=== PATIENT | female | born 1980 | race Caucasian/White ===

== ENCOUNTER → 2019-08-24 14:05 | Outpatient (BNVA) | payer OTHER, SELFPAY | PROVIDERS: Family Provider Family Medicine; Visit Provider Obstetrics & Gynecology | DX: Z12.4 Encounter for screening for malignant neoplasm of cervix (principal); R10.2 Pelvic and perineal pain | CPT/HCPCS: 88175 ==

== ENCOUNTER → 2019-08-29 15:11 | Outpatient (BNVA) | payer OTHER, SELFPAY | PROVIDERS: Family Provider Family Medicine; Visit Provider Obstetrics & Gynecology | DX: Z12.4 Encounter for screening for malignant neoplasm of cervix (principal); N85.4 Malposition of uterus | CPT/HCPCS: 76830 ==

== ENCOUNTER 2019-09-19 08:56 | Day surgery (SDC) | payer OTHER, SELFPAY ==
[2019-09-18 12:21] LABS: OR HCG Qualitative Urine Negative (Negative)
--- NOTE | 2019-09-18 12:39 | ANES.PREANE2 ---
Pre-Anesthetic Assessment Pre-Anesthetic Assessment: Height/Weight: Height 1.73 m Weight 68.039 kg Preop Diagnosis: Pelvic pain Proposed Procedure: Operation Date: 09/19/19 07:00 Proposed Procedures p Laparoscopy Diagnostic 14066 R10.2(Not Applicable) - Patrice Fontenot MD Familial anesthetic complications: None Social: Social History: No alcohol and No tobacco Exam: Pre-Anes Outpt Exam: alert, oriented x 3, clear to auscultation bilaterally and regular rate & rhythm Airway: Cervical ROM: WNL MP: 2 Additional comments: missing Pulmonary: Pulmonary: None reported CV/HEM: CV/HEM: None reported : : None reported Hepatic: Hepatic: None reported GI: GI: None reported Metabolic: Metabolic: None reported Musc/skel: Musc/skel: None reported Neuropsych: Neuropsych: None reported Anesthetic Plan: ASA status: 1 Anesthesia: General Risk of > 500 ml blood loss (7ml/kg in children): No PFSH Anesthesia PFSH: Social History Smoking and tobacco status: former smoker Quit status (tobacco): has quit using tobacco Year quit tobacco: 2019 Alcohol intake: never Female Reproductive History: Date of last menstrual period: 09/04/19 Data Anesthesia Other Labs: Laboratory Results - last 48 hr 09/18/19 12:15 Urine HCG, Qual Negative Cardiac Studies: No Data to Display
[2019-09-18 12:54] LABS: Add Urine Microscopic? NO
[2019-09-18 13:06] LABS: Basophils % 0.6 %; Eosinophils # 0.1 10^3/uL (0.0-0.8); Eosinophils % 2.2 %; Hematocrit 42.3 % (37.0-47.0); Hemoglobin 13.9 g/dL (11.5-15.3); Lymphocytes # 1.3 10^3/uL (0.8-4.8); Lymphocytes % 24.8 %; Mean Corpuscular HGB Conc 32.9 g/dL (30.0-36.0); Mean Corpuscular Hemoglobin 30.3 pg (28.0-34.0); Mean Corpuscular Volume 92.4 fL (81-99); Mean Platelet Volume 10.7 fL (7.4-10.4); Monocytes # 0.7 10^3/uL (0.2-0.9); Monocytes % 14.1 %; Neutrophils # 2.9 10^3/uL (1.8-7.7); Neutrophils % 58.1 %; Nucleated Red Blood Cells % 0 %; Platelet Count 198 10^3/cmm (130-400); Red Blood Count 4.58 10^6/uL (4.1-5.3); Red Cell Distribution Width 11.4 % (12.1-15.1); White Blood Count 5.1 10^3/uL (4.0-10.0)
[2019-09-18 13:12] LABS: Anion Gap 13.3 (5-19); Blood Urea Nitrogen 12 mg/dL (6-20); Calcium 9.5 mg/dL (8.5-10.5); Carbon Dioxide 30 mmol/L (22-29); Chloride 101 mmol/L (98-107); Glomerular Filtration Rate 80.3 mL/min (90-130); Glucose 73 mg/dL (65-115); Osmolality Calculated 285 mOsm/kg (285-295); Potassium 4.3 mmol/L (3.5-5.1); Sodium 140 mmol/L (136-145)
[2019-09-18 13:54] LABS: Bilirubin Urine Neg (NEGATIVE); Blood Urine Neg (Negative); Glucose Urine UA Norm (Normal); Ketones Urine Negative (Negative); Leukocyte Esterase Urine Negative (Negative); Nitrate Urine Negative (Negative); Protein Urine Neg (Negative); Urine Appearance Clear (CLEAR); Urine Color Yellow (Yellow); Urobilinogen Urine Norm (Negative); pH Urine 6.5 (5-7)
[2019-09-19] VITALS (9 sets, daily range): BP systolic 103–117; BP diastolic 73–82; PULSE 52–77; RESP 12–26; TEMP 36.4–36.7; O2SAT 97–100; BMI 22.8
[2019-09-19] MEDS: sodium chloride 0.9% 1,000 ML 30 ML IV (06:18)
[2019-09-19] MEDS: scopolamine 1.5 Patch 1 PATCH TRANSDERMA (06:19)
[2019-09-19] MEDS: ketorolac 30 mg/mL INJ IVP (06:32)
--- NOTE | 2019-09-19 06:51 | P.ANESUD_ITS ---
Pre-Anesthetic Update Pre-Anesthetic Assessment: Date of Surgery/Procedure: 09/19/19 Preop Addie gnosis: Pelvic pain Proposed Procedure: Operation Date: 09/19/19 07:00 Proposed Procedures p Laparoscopy Diagnostic 40650 R10.2(Not Applicable) - Patrice Fontenot MD Any changes to Pre-Anesthetic Assessment?: No Last Intake: Intake Last Liquid Date 09/18/19 Last Liquid Time 23:45 Last Solid Date 09/18/19 Last Solid Time 14:00 Labs Last 48hrs: Laboratory Results - last 48 hr 09/18/19 09/18/19 09/18/19 12:15 12:15 12:15 WBC 5.1 RBC 4.58 Hgb 13.9 Hct 42.3 MCV 92.4 MCH 30.3 MCHC 32.9 RDW 11.4 L Plt Count 198 MPV 10.7 H Neut % (Auto) 58.1 Lymph % (Auto) 24.8 [place] % (Auto) 14.1 Eos % (Auto) 2.2 Baso % (Auto) 0.6 Neut # (Auto) 2.9 Lymph # (Auto) 1.3 [place] # (Auto) 0.7 Eos # (Auto) 0.1 Baso # (Auto) 0.0 Nucleated RBC % (a uto) 0 Nucleated RBCs # 0.0 Sodium 140 Potassium 4.3 Chloride 101 Carbon Dioxide 30 H Anion Gap 13.3 BUN 12 Creatinine 0.8 GFR Calculation 80.3 L Glucose 73 Calculated Osmolal ity 285 Calcium 9.5 Urine Color Urine Appearance Urine pH Ur Specific Gravit y Urine Protein Urine Glucose (UA) Urine Ketones Urine Blood Urine Nitrate Urine Bilirubin Urine Urobilinogen Ur Leukocyte Atiya ase Urine HCG, Qual Negative 09/18/19 12:15 WBC RBC Hgb Hct MCV MCH MCHC RDW Plt Count MPV Neut % (Auto) Lymph % (Auto) [place] % (Auto) Eos % (Auto) Baso % (Auto) Neut # (Auto) Lymph # (Auto) [place] # (Auto) Eos # (Auto) Baso # (Auto) Nucleated RBC % (a uto) Nucleated RBCs # Sodium Potassium Chloride Carbon Dioxide Anion Gap BUN Creatinine GFR Calculation Glucose Calculated Osmolal ity Calcium Urine Color Yellow Urine Appearance Clear Urine pH 6.5 Ur Specific Gravit y 1.010 Urine Protein Neg Urine Glucose (UA) Norm Urine Ketones Negative Urine Blood Neg Urine Nitrate Negative Urine Bilirubin Neg Urine Urobilinogen Norm Ur Leukocyte Atiya ase Negative Urine HCG, Qual Vitals: Temperature 97.5 F L 09/19/19 06:46 Temperature Source Temporal Artery S can 09/19/19 06:46 Pulse Rate 69 09/19/19 06:46 Respiratory Rate 18 09/19/19 06:46 Blood Pressure 116/80 09/19/19 06:46 Blood Pressure Char n 92 09/19/19 06:46 Pulse Oximetry 97 09/19/19 06:46 Oxygen Delivery Me thod 09/19/19 06:48 Exam: Pre-Anes Outpt Exam: alert, oriented x 3, clear to auscultation bilaterally and regular rate & rhythm Cardiac Studies: No Data to Display
--- NOTE | 2019-09-19 07:09 | W.PM.OPSUD ---
Surgery/Procedure H&P Update DATE OF PROCEDURE: September 19, 2019 DATE H&P PERFORMED: 09/11/19 H&P UPDATE INFORMATION: I have reviewed H&P completed within last 30 days and I have examined patient prior to procedure PREOP DIAGNOSIS: Pelvic pain PLANNED PROCEDURE: Operation Date: 09/19/19 07:00 Proposed Procedures p Laparoscopy Diagnostic 31338 R10.2(Not Applicable) - Patrice Fontenot MD
--- NOTE | 2019-09-19 08:08 | P.OP_ITS ---
Operative Report Date of procedure: September 19, 2019 Pre-op Diagnosis: Pelvic pain Post-op diagnosis: same Post-op Findings: Bilateral hydrosalpinx, clubbed fallopian tubes, left side cul-de-sac peritoneal defects (windows). Procedure Done: diagnostic laparoscopy Pathology: none sent Surgeon: Patrice Fontenot Anesthesia: General Estimated blood loss (mL): 5 IV fluids (mL): 500 Urine output (mL): 50 Complications: 9 Findings: same as postop findings Condition: stable Disposition: PACU Brief History: 39-year-old female with chronic pelvic pain Procedure: DESCRIPTION OF PROCEDURE: After informed consent, the patient was taken to the operating room where general anesthesia was administered. The patient was examined under anesthesia and found to have a normal uterus with normal adnexa. She was placed in the dorsal lithotomy position and prepped and draped in sterile fashion. Pre- Procedure Time-Out verifying the correct patient identity, correct procedure verified with consent, correct site and side, correct patient position, availability of correct implants and any special equipment or requirements was performed and acknowledge by the OR team. A weighted speculum was placed in the vagina, and the anterior lip of cervix was grasped with the single toothed tenaculum. A uterine manipulator was advanced into the endocervical. Tenaculum was removed after uterine manipulator was secured. The speculum was removed from the vagina. An intraumbilical incision was made with a scalpel. While tenting up on the abdomen, a Verres needle with sleeve was admitted into the intra-abdominal cavity. A saline drop test was performed and noted to be within normal limits. Pneumoperitoneum was attained with 4 liters of carbon dioxide. The Verres needle was removed. A 5 mm trocar and sleeve were admitted into the abdomen and laparoscopic confirmation of location was achieved, A second incision was made 3 cm above the symphysis pubis, and a 5 mm trocar and sleeve were admitted into the abdomen under direct, laparoscopic visualization without complication. A survey revealed normal abdominal anatomy and pelvic survey shows normal uterus, left and right ovaries. However left and right fallopian tubes are clubbed and dilated subjective of hydrosalpinx. A 5 mm blunt probe was advanced through the second trocar sleeve, and light manipulation of ovaries and uterus to assess the posterior aspects was performed. Peritoneal defects (windows) were noted in the cul-de-sac left side. Carbon dioxide was allowed to escape from the abdomen. The instruments were removed, and skin cover with a bandage. The instruments were removed from the vagina, and excellent hemostasis was noted. The patient tolerated the procedure well, and sponge, lap and needle count were correct times two. The patient taken to the recovery room in good condition.
--- NOTE | 2019-09-19 08:12 | SUR.PHASEI ---
0811 PATIENT TO PACU AT THIS TIME. RR EVEN AND UNLABORED. PATIENT NOTED TO BE SLEEPING, PROTECTING AIRWAY. 2 INCISIONS NOTED TO ABDOMEN, CLOSED WITH DERMABOND. CDI.
[2019-09-19] MEDS: ondansetron 2 mg/ML SDV 2 mL 4 MG IVP (08:24)
--- NOTE | 2019-09-19 08:40 | SUR.PHASEI ---
0837 PATIENT TO OPS AT THIS TIME. NO DISTRESS. RR EVEN AND UNLABORED. INCISIONS TO ABDOMEN, CDI.
--- NOTE | 2019-09-19 09:40 | PM.PACU ---
PACU note Post-Anesthesia Exam: awake and vital signs stable Disposition: discharged
== END 2019-09-19 09:36 | disposition home or self-care (01) ==
LOC: OR 08:56
PROVIDERS: Visit Provider Obstetrics & Gynecology
PROC: (CPT 49320; principal; 2019-09-19 07:00)
DX: N70.11 Chronic salpingitis (principal); N83.8 Other noninflammatory disorders of ovary, fallopian tube and broad ligament; Z87.891 Personal history of nicotine dependence; Z83.3 Family history of diabetes mellitus; Z82.49 Family history of ischemic heart disease and other diseases of the circulatory system
CPT/HCPCS: 49320; 12345; 36415; 80048; 81003; 81025; 84703; 85025; 96374; J1100; J1885; J2001; J2250; J2405; J2704; J2710; J3010; J3490; J7030

== ENCOUNTER 2019-11-14 10:16 | Observation (INO) | payer OTHER, SELFPAY ==
[2019-11-13 10:28] VITALS: BMI 22.8
[2019-11-14] VITALS (19 sets, daily range): BP systolic 101–141; BP diastolic 61–94; PULSE 61–95; RESP 15–31; TEMP 36.2–36.7; O2SAT 97–100
[2019-11-14] MEDS: sodium chloride 0.9% 1,000 ML 30 ML IV ×2 (06:54→10:56)
--- NOTE | 2019-11-14 06:56 | ANES.PREANE2 ---
Pre-Anesthetic Assessment Pre-Anesthetic Assessment: Height/Weight: Height 1.73 m Weight 68.039 kg Temp Pulse Resp BP Pulse Ox 97.1 F L 71 16 117/82 98 11/14/19 06:36 11/14/19 06:36 11/14/19 06:36 11/14/19 06:36 11/14/19 06:36 Preop Diagnosis: Chronic pelvic pain, endometriosis Proposed Procedure: Operation Date: 11/14/19 07:50 Proposed Procedures p Laparoscopic Assist Vaginal Hystectomy 15059 N70.11 R10.2 N80.9(Not Applicable) - Patrice Fontenot MD Familial anesthetic complications: None Was Beta Carmencita taken within 24 hours: N/A Last intake: Intake Last Liquid Date 11/13/19 Last Liquid Time 19:00 Last Solid Date 11/13/19 Last Solid Time 19:00 Social: Social History: No alcohol and No tobacco Exam: Pre-Anes Outpt Exam: alert, oriented x 3, clear to auscultation bilaterally and regular rate & rhythm Airway: Cervical ROM: WNL MP: 2 Additional comments: missing Pulmonary: Pulmonary: None reported CV/HEM: CV/HEM: None reported : : None reported Hepatic: Hepatic: None reported GI: GI: None reported Metabolic: Metabolic: None reported Musc/skel: Musc/skel: None reported Neuropsych: Neuropsych: None reported Anesthetic Plan: ASA status: 1 Anesthesia: General Risk of > 500 ml blood loss (7ml/kg in children): No Meds/Allergies Current Medications: Current Medications Generic Name Dose Route Start Last Admin Trade Name Freq PRN Reason Stop Dose Admin Sodium Chloride 1,000 mls @ 30 ml s/hr 11/14/19 06:30 11/14/19 06:54 Sodium Chloride 0.9% IV 11/15/19 06:29 30 mls/hr .Q24H MARY Administration PFSH Anesthesia PFSH: Social History (Updated 11/12/19 @ 09:05 by Vira Garcia RN) Smoking and tobacco status: former smoker Quit status (tobacco): has quit using tobacco Year quit tobacco: 2019 Alcohol intake: never Female Reproductive History: Date of last menstrual period: 09/04/19 Data Anesthesia Cardiac Studies: No Data to Display
--- NOTE | 2019-11-14 07:07 | W.PM.OPSUD ---
Surgery/Procedure H&P Update DATE OF PROCEDURE: November 14, 2019 DATE H&P PERFORMED: 11/12/19 H&P UPDATE INFORMATION: I have reviewed H&P completed within last 30 days and I have examined patient prior to procedure PREOP DIAGNOSIS: Chronic pelvic pain, endometriosis PLANNED PROCEDURE: Operation Date: 11/14/19 07:50 Proposed Procedures p Laparoscopic Assist Vaginal Hystectomy 93782 N70.11 R10.2 N80.9(Not Applicable) - Patrice Fontenot MD
[2019-11-14 07:19] LABS: Basophils % 0.6 %; Eosinophils # 0.2 10^3/uL (0.0-0.8); Eosinophils % 2.7 %; Hematocrit 40.8 % (37.0-47.0); Hemoglobin 13.3 g/dL (11.5-15.3); Lymphocytes # 1.8 10^3/uL (0.8-4.8); Lymphocytes % 25.5 %; Mean Corpuscular HGB Conc 32.6 g/dL (30.0-36.0); Mean Corpuscular Hemoglobin 30.6 pg (28.0-34.0); Mean Platelet Volume 10.7 fL (7.4-10.4); Monocytes # 0.6 10^3/uL (0.2-0.9); Monocytes % 8.1 %; Neutrophils # 4.4 10^3/uL (1.8-7.7); Neutrophils % 62.7 %; Nucleated Red Blood Cells % 0 %; Platelet Count 206 10^3/cmm (130-400); Red Blood Count 4.34 10^6/uL (4.1-5.3); Red Cell Distribution Width 11.7 % (12.1-15.1); White Blood Count 7.1 10^3/uL (4.0-10.0)
[2019-11-14 07:22] LABS: OR HCG Qualitative Urine Negative (Negative)
--- NOTE | 2019-11-14 08:59 | SUR.OPER ---
0850 - Pt's family, [place], notified of surgery start via his cell phone.
[2019-11-14 09:06] LABS: Alanine Aminotransferase 12 U/L (0-33); Albumin Level 4.5 g/dL (3.5-5.2); Alkaline Phosphatase 50 IU/L (35-105); Anion Gap 14.1 (5-19); Aspartate Amino Transferase 15 U/L (0-32); Blood Urea Nitrogen 19 mg/dL (6-20); Calcium 9.1 mg/dL (8.5-10.5); Carbon Dioxide 28 mmol/L (22-29); Chloride 99 mmol/L (98-107); Globulin 2.8 g/dL (1.3-4.6); Glomerular Filtration Rate 80.3 mL/min (90-130); Glucose 86 mg/dL (65-115); Osmolality Calculated 280 mOsm/kg (285-295); Potassium 4.1 mmol/L (3.5-5.1); Sodium 137 mmol/L (136-145); Total Bilirubin 0.4 mg/dL (0.15-1.2); Total Protein 7.3 g/dL (6.6-8.7)
--- NOTE | 2019-11-14 10:13 | P.OP_ITS ---
Operative Report Date of procedure: November 14, 2019 Pre-op Diagnosis: Chronic pelvic pain, endometriosis Post-op diagnosis: same Procedure Done: Laparoscopic assisted vaginal hysterectomy Specimens removed/disposition: Uterus and left and right fallopian tubes Anesthesia: General Estimated blood loss (mL): 100 Urine output (mL): 100 Complications: None Condition: stable Disposition: PACU Brief History: 39-year-old female with chronic pelvic pain and endometriosis Procedure: After informed consent, the patient was taken to the operating room where general anesthesia was administered. Pre-Procedure Time-Out verifying the correct patient identity, correct procedure verified with consent, correct site and side, correct patient position, availability of correct implants and any special equipment or requirements was performed and acknowledge by the OR team. She was placed in the dorsal lithotomy position and prepped and draped in sterile fashion. The patient was examined under anesthesia and found to have a normal uterus with normal adnexa. A Yi catheter was placed in the bladder. A weighted speculum was placed in the vagina, and the anterior lip of cervix was grasped with the single toothed tenaculum. A uterine manipulator was advanced into the endocervical. Tenaculum was removed after uterine manipulator was secured. The speculum was removed from the vagina. The attention was brought to abdomen after changing gloves. The base of the umbilicus was grasped with an Allis clamp and with 2 towel clamp bilaterally tenting up the umbilicus an intraumbilical incision was made with a scalpel. While tenting up on the abdomen, a Verres needle with sleeve was admitted into the intra-abdominal cavity. A saline drop test was performed and noted to be within normal limits. Pneumoperitoneum was attained with 4 liters of carbon dioxide. The Verres needle was removed. Then a 5 mm Optiview trocar and cannula were inserted under direct visualization without complications. Trocars were removed and the laparoscope was inserted and connected to the video camera light source. A 5 mm trocar and cannula were placed in the right lower quadrant under direct visualization after infiltration of 0.5% Marcaine with epinephrine. A 5 mm trocar and cannula were placed in the left lower quadrant under direct visualization after infiltration of 0.5% Marcaine with epinephrine. The pelvic contents were visualized and noted a small uterus, deep cul-de-sac, normal bilateral fallopian tubes and ovaries, normal appendix, and both ureters were identified crossing the pelvic brim and pelvic sidewall. The left round ligament was coagulated and transected using Enseal device. The left broad ligament was opened down to the level of the uterine artery and vein. The left infundibulopelvic ligament was coagulated using Enseal and then transected. The right round ligament was coagulated and transected using Enseal, and the right broad ligament was opened down to the level of the right uterine artery and vein. The right infundibulopelvic ligament was coagulated and transected using Enseal. Peritoneum of the lower ut erine segment was entered using Enseal, and the bladder was dissected off the lower uterine segment using blunt dissection. Careful inspection revealed complete hemostasis. A weighted speculum was placed in the posterior vaginal wall and the right-angle retractor used to visualize the cervix. The cervix was grasped across the anterior lip with a single-toothed tenaculum and circumferentially infiltrated with 1% Xylocaine with epinephrine at this time. The cervix was circumferentially excised with the scalpel. The vaginal mucosa was dissected superiorly with sharp dissection. The anterior peritoneal reflection was identified, and it was entered with Metzenbaum scissors. A posterior colpotomy was made through the cul-de-sac space. The posterior peritoneum was identified in similar fashion and Metzenbaum scissors were used to enter the cul-de-sac. At this time, a weighted speculum was placed, advanced posteriorly into the cul-de-sac. At this time, the left and right uterosacral ligaments were isolated and ligated with 0 Vicryl. The Enseal device was then used in a serial fashion up through the cardinal ligaments bilaterally. Finally, the uterine arteries were cross-clamped, cut, and ligated with the Enseal device. Enseal device was then used up through the broad ligaments superiorly and finally the uterus was rotated posteriorly. The left and right tubes were then cross- clamped and ligated with Enseal device. The uterus was excised and submitted for pathologic evaluation. No other abnormalities were noted in the pelvic cavity. At this time, instruments were removed from the patient's abdominopelvic cavity. Vaginal cuff closure and peritoneum were incorporated into one layer with 0 Vicryl suture in a continuous running interlocking fashion. Hemostasis was not ed to be achieved. Then the Yi catheter was removed and cystoscope was inserted. The bladder was filled with sterile water. Complete evaluation of the bladder mucosa was performed noting no lacerations, dimpling, tears, bleeding of the mucosa or muscular layers. Both ureteral orifices were identified. Prompt excretion of urine from both ureteral orifices was noted. Cystoscope was withdrawn. Yi catheter was then placed yielding clear lashonda urine. A vaginal packing with Premarin cream was placed and the patient was taken out of dorsal lithotomy position and awakened from the general anesthesia. The patient tolerated the procedure well and was taken to the PACU recovery room in a stable condition. Sponge, lap, needle and instruments counts were correct x3.
--- NOTE | 2019-11-14 10:31 | SUR.PHASEI ---
PT AWAKES TO TOUCH , ABD SOFT 3 SITES WITH EXOFING FAIZA PAD D/I BURTON TO DD BLUE URINE NOTED., PT KEEPS TAKING MASK OFF
[2019-11-14] MEDS: fentaNYL 50 mcg/mL INJ 2mL IVP ×2 (10:34→10:40)
[2019-11-14] MEDS: meperidine 50 mg/mL INJ 12.5 MG IVP (10:45)
--- NOTE | 2019-11-14 11:00 | SUR.PHASEI ---
PT NOW SLEEPS IF NOT DISTURBED STATES LT SHOULDER PAIN IS GONE WITH PAIN MEDS AND REPOSITION, SEE EARLIER PAIN MEDS AND MED GIVEN FOR PT SHIVERING , PT GIVEN WARM BLANKETS TO BILAT SHOULDERS AND ABD EARLIER, VSS SATS 100% ON RA. HR 72 SR, URINE IN SMALL AMT NOTED TO BURTON BAG BLUE IN COLOR.
--- NOTE | 2019-11-14 11:37 | SUR.PHASEI ---
PT TO FLOOR PT MOVES SELF TO BED, BP 114/73, HR 76, RESP 15, SATS ON RA 100%
[2019-11-14] MEDS: ondansetron 2 mg/ML SDV 2 mL 4 MG IVP (11:54)
[2019-11-14] MEDS: HYDROcodone-acetaminophen 5-325 mg Tablet PO ×2 (11:54→18:12)
[2019-11-14] MEDS: ketorolac 30 mg/mL INJ IVP ×3 (11:55→23:58)
[2019-11-14] MEDS: fentaNYL 50 mcg/mL INJ 2mL IV (15:43)
[2019-11-14] MEDS: docusate sodium 100 mg Capsule PO (18:13)
[2019-11-14] MEDS: simethicone 80 mg Chew PO (18:21)
[2019-11-14] MEDS: dextrose 5%-lactated ringers 1,000 ML 125 ML IV (18:21)
[2019-11-15 04:00] VITALS: BP 107/65; PULSE 63; RESP 16; TEMP 36.7; O2SAT 98
[2019-11-15] MEDS: HYDROcodone-acetaminophen 5-325 mg Tablet PO (04:52)
[2019-11-15 04:59] LABS: Hematocrit 35.4 % (37.0-47.0); Hemoglobin 11.6 g/dL (11.5-15.3); Mean Corpuscular HGB Conc 32.8 g/dL (30.0-36.0); Mean Corpuscular Volume 94.7 fL (81-99); Mean Platelet Volume 10.8 fL (7.4-10.4); Platelet Count 174 10^3/cmm (130-400); Red Blood Count 3.74 10^6/uL (4.1-5.3); Red Cell Distribution Width 11.9 % (12.1-15.1); White Blood Count 10.3 10^3/uL (4.0-10.0)
[2019-11-15] MEDS: ketorolac 30 mg/mL INJ IVP (06:17)
[2019-11-15] MEDS: nitrofurantoin SR (BID) 100 mg Capsule PO (08:33)
[2019-11-15] MEDS: docusate sodium 100 mg Capsule PO (08:33)
[2019-11-15 10:42] VITALS: BP 109/72; PULSE 69; RESP 16; TEMP 36.9
--- NOTE | 2019-11-15 12:22 | P.DS_ITS ---
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 Date of Admission: 11/14/19 10:16 Date of Discharge: 11/15/19 Attending Provider at Admission: Patrice Fontenot MD Attending Provider at Discharge: Patrice Fontenot MD Primary Care Provider: David Stallworth MD Diagnoses at Discharge Discharge Diagnosis (1) Chronic pelvic pain in female: Status: Acute Problem details: Status post laparoscopic-assisted vaginal hysterectomy day 1 (2) Endometriosis: Status: Acute (3) Hydrosalpinx: Status: Acute Reason for Visit Reason for Visit: Reason For Visit: Chronic salpingitis, pelvic and perineal pain, end Brief History: 39-year-old female with chronic pelvic pain and endometriosis unresponsive to medical management, scheduled for laparoscopic- assisted vaginal hysterectomy. Hospital Course Hospital Course: The patient admitted for planned laparoscopic assisted vaginal hysterectomy. The procedure was performed without complications. Overnight observation uneventful. She is afebrile hemodynamically stable. Tolerating diet well. Passing flatus. Ambulating without difficulty. Physical Exam Narrative: EXAM NARRATIVE: GA: Alert and oriented ?3. HEENT: WNL. Heart: Regular rate and rhythm. Lungs: Clear to auscultation bilaterally. Abdomen: Bowel sounds present, nontender, minimal tenderness, incision clean and dry, no redness, pain or edema. DESK CLERKS SUPERVISOR: No bleeding. Extremities: No edema, no cyanosis, no calves pain. Urinary Catheter Management^: Yi: Cath Placed During This Visit: yes Urinary Catheter Date of Insertion: 11/14/19 Urinary Catheter Time of Insertion: 08:40 Discharge Data Data Completed and Pending: Completed Studies During Hospitalization Category Date Time Status Pathology: Surgic al [PTH] Routine Pth 11/14/19 09:56 Completed Pending at discharge Category Date Time Status ES surgery / GI i mages Routine Exams 11/14/19 08:10 Taken Labs from last 24 hours 11/15/19 04:45 WBC 10.3 H RBC 3.74 L Hgb 11.6 Hct 35.4 L MCV 94.7 MCH 31.0 MCHC 32.8 RDW 11.9 L Plt Count 174 MPV 10.8 H Laboratory Tests 11/14/19 06:47 WBC 7.1 Hgb 13.3 Hct 40.8 Plt Count 206 Vitals: Last Vital Signs Temp 98.5 F 11/15/19 10:42 Pulse 69 11/15/19 10:42 Resp 16 11/15/19 10:42 BP 109/72 11/15/19 10:42 Pulse Ox 98 11/15/19 04:00 Discharge Plan Discharge Patient Disposition: Home, Self-Care Condition: Stable Prescriptions: New hydrocodone-acetaminophen 5-325 mg Tablet 1 - 2 tab PO Q6H PRN (Reason: Moderate To Severe Pain) Qty: 30 RF: 0 ibuprofen 800 mg tablet 800 mg PO TID PRN (Reason: Postoperative pain) Qty: 90 RF: 0 docusate sodium 100 mg Capsule 100 mg PO BID Qty: 60 RF: 0 Continued nitrofurantoin macrocrystal 100 mg capsule 100 mg PO DAILY RF: 0 Discharge Orders: Discharge Order (Routine); Ordered 11/15/19 Ordered By: Patrice Fontenot Discharge Diet: Regular Discharge Activity: Increase activity as tolerated Activity Restrictions/Additional Instructions: Pelvic rest for 6 weeks (no sex, no tampons, no vaginal douches). Return to the emergency room if any fever, increased bleeding or pain. 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
[2019-11-15 13:16] VITALS: BP 125/79; PULSE 73; RESP 18; TEMP 36.7
== END 2019-11-15 13:30 | disposition home or self-care (01) ==
LOC: OBGYN 10:16
PROVIDERS: Admitting Provider Obstetrics & Gynecology; PCP Family Medicine; Visit Provider Obstetrics & Gynecology
PROC: 0UT9FZZ Resection of Uterus, Via Natural or Artificial Opening With Percutaneous Endoscopic Assistance (ICD-10-PCS; CPT 58552; principal; 2019-11-14 07:50)
DX: N80.9 Endometriosis, unspecified (principal); G89.29 Other chronic pain; N70.11 Chronic salpingitis
CPT/HCPCS: 58552; 12345; 36415; 80053; 84703; 85025; 85027; 86850; 86900; 88307; 96361; 96365; 96375; G0378; J0131; J0694; J1100; J1885; J2001; J2175; J2405; J2704; J3010; J3490; J7030

== ENCOUNTER → 2019-11-27 13:49 | Outpatient (BNVA) | payer OTHER, SELFPAY | PROVIDERS: PCP Family Medicine; Visit Provider Obstetrics & Gynecology | DX: G89.18 Other acute postprocedural pain (principal) | CPT/HCPCS: 76856 ==

== ENCOUNTER → 2020-06-16 12:12 | Outpatient (BNVA) | payer OTHER, SELFPAY | PROVIDERS: PCP Family Medicine; Visit Provider Family Medicine | DX: N39.0 Urinary tract infection, site not specified (principal) | CPT/HCPCS: 81003; 87077; 87086; 87184 ==

== ENCOUNTER → 2020-07-08 15:06 | Outpatient (BNVA) | payer OTHER, SELFPAY | PROVIDERS: PCP Family Medicine; Visit Provider Family Medicine | DX: Z20.828 Contact with and (suspected) exposure to other viral communicable diseases (principal) | CPT/HCPCS: 87635 ==

== ENCOUNTER → 2020-08-12 14:54 | Outpatient (BNVA) | payer OTHER, SELFPAY | PROVIDERS: PCP Family Medicine; Visit Provider Family Medicine | DX: F32.9 Major depressive disorder, single episode, unspecified (principal); F41.9 Anxiety disorder, unspecified | CPT/HCPCS: 84443 ==

== ENCOUNTER → 2021-03-03 15:43 | Outpatient (BNVA) | payer OTHER, SELFPAY | PROVIDERS: PCP Family Medicine; Visit Provider Obstetrics & Gynecology | DX: R23.2 Flushing (principal) | CPT/HCPCS: 83001; 84443 ==

== ENCOUNTER 2021-07-13 10:29 | Emergency (ER) | payer OTHER, SELFPAY ==
[2021-07-13 10:58] VITALS: BP 142/98; PULSE 69; RESP 14; TEMP 36.6; O2SAT 96; BMI 25.0
--- NOTE | 2021-07-13 11:24 | ED_ITS ---
HPI - Back Pain/Injury General: Chief Complaint: Back Pain/Injury Stated Complaint: LOWER BACK PAIN Time Seen by Provider: 07/13/21 11:21 History of Present Illness: HPI Narrative: Patient complains about low back pain rating down to both hips. 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 Hurts to walk get up out of a chair. Is having some back spasms MD elicited complaint: back pain Onset (ago): day(s) Timing: progressively worsening Severity: moderate Similar Symptoms Previously: No Quality: aching Radiation: buttocks Exacerbating factors: movement, sitting upright and walking Relieving factors: immobilization Context: while lifting, turning/twisting and bending Associated symptoms: Reports no associated symptoms; Deny abdominal pain, chills, fever(s), nausea or vomiting Review of Systems Const: Denies: fever(s), chills or body aches Eyes: Denies: change in vision or blurry vision ENMT: Denies: throat pain or nasal congestion Card: Denies: chest pain or dyspnea on exertion Resp: Denies: dyspnea, productive cough or non-productive cough GI: Denies: abdominal pain, nausea or vomiting Musc: Reports: back pain; Denies: extremity pain Skin/Breast: Denies: rash Neuro: Denies: headache(s) Psych: Denies: anxiety or depression Amilcar/Lymph: Denies: easy bruising PFSH ED PFSH: Medical History Aftercare following surgery of the genitourinary system Anxiety and depression History of 2019 novel coronavirus disease (COVID-19) Panic attacks Psychiatric care Surgical History S/P breast augmentation 2017 S/P hysterectomy 11/14/2019- [place] [facility] [place] Diagnostic laparoscopy- 09/19/[address] [place] [facility] [place] S/P lumpectomy, right breast S/P tubal ligation 2004 Family History Grandmother Diabetes maternal Grandfather Diabetes maternal Mother Hypertension Social History Smoking and tobacco status: former smoker Quit status (tobacco): has quit using tobacco Year quit tobacco: 2019 Alcohol intake: never Female Reproductive History: Date of last menstrual period: 10/29/19 Physical Exam Const: COMMON NORMALS: no acute distress, average body habitus and patient oriented x3 HENMT: COMMON NORMALS: normocephalic HEAD & SCALP: normal to inspection and normocephalic FACE & SINUS: normal facial exam Eye: COMMON NORMALS: conjunctivae normal GENERAL EYE: appearance normal, both eyes and all related structures CONJUNCTIVA: Yes conjunctivae normal Neck/C-Spine: COMMON NORMALS: no JVD Chest: COMMONS NORMALS: normal inspection of the chest Resp: COMMON NORMALS: normal respiratory effort Cardio: COMMON NORMALS: no JVD, regular rate and regular rhythm RATE: regular rate RHYTHM: regular rhythm GI: COMMON NORMALS: Normal to inspection, nondistended, normoactive bowel sounds present Back/Pelvis: LUMBAR SPINE/LOWER BACK: Yes straight leg raise positive right, Yes straight leg raise positive left and Yes other soft tissue findings (Tender over sciatic nerve specially left versus right buttocks) Extremity: COMMON NORMALS: normal to inspection and full ROM Neuro: COMMON NORMALS: patient oriented x3 Course Vital Signs: Vital signs: Vital Signs Temperature 97.9 F 07/13/21 10:58 Pulse Rate 69 07/13/21 10:58 Respiratory Rate 14 07/13/21 10:58 Blood Pressure 142/98 07/13/21 10:58 Pulse Oximetry 96 07/13/21 10:58 Discharge Plan Discharge Patient Disposition: Home Clinical Impression: Strain of lumbar region Qualifiers: Encounter type: initial encounter Qualified Code(s): S39.012A - Strain of muscle, fascia and tendon of lower back, initial encounter Condition: Stable Prescriptions: New prednisone 20 mg tablet 20 mg PO DAILY Qty: 7 RF: 0 tramadol 50 mg tablet 50 mg PO TID PRN (Reason: pain) Qty: 14 RF: 0 cyclobenzaprine 5 mg tablet 5 mg PO TID PRN (Reason: muscle spasm) Qty: 10 RF: 0 No Action bupropion HCl 150 mg tablet extended release 24 hr 150 mg PO QAM 30 Days Qty: 30 RF: 3 Discharge Orders: Discharge ED (Routine); Ordered 01/03/22 Ordered By: Gee Dhlilon Referrals: Nancy Paulson DO [Primary Care Provider] - Discharge Diet: Usual diet Discharge Activity: Limit activity as instructed Patient Instructions: Low Back Strain (ED) Activity Restrictions/Additional Instructions: Follow-up with medical provider as directed. Take medications as prescribed. Return to the ER or your medical provider if condition worsens. Please read and understand discharge instructions. If any questions ask please. No lifting over 10 pounds for next 3 to 4 weeks. Can follow-up with chiropractor if so desired. Coding Level of Care Code ED [employer] for Emery Carrillo
--- NOTE | 2021-07-13 12:05 | PC.NURSE ---
reviewed the discharge instructions with patient and spouse, both verbalize understanding of all instructions, medications and follow up, pt amb from ED with all belongings
== END 2021-07-13 12:06 | disposition home or self-care (01) ==
PROVIDERS: Emergency Provider Nurse Practitioner Family; PCP Family Medicine
DX: S39.012A Strain of muscle, fascia and tendon of lower back, initial encounter (principal); X50.9XXA Other and unspecified overexertion or strenuous movements or postures, initial encounter
CPT/HCPCS: 99282

== ENCOUNTER 2021-07-27 10:59 | Outpatient (CLI) | payer OTHER, SELFPAY ==
[2021-07-27 12:02] LABS: Urine Creatinine 67 mg/dL (28-217)
[2021-07-27 12:11] LABS: Free T4 Free Thyroxine 1.01 ng/dL (0.82-1.77); Thyroid Stimulating Hormone 1.18 uIU/mL (0.27-4.20)
[2021-07-27 12:13] LABS: Creatinine 24 Hour Urine 1155.8 mg/dL (601-1689); Total Volume Urine 1725 ml
[2021-07-28 15:11] LABS: Dehydroepiandrosterone Sulfate 212 mcg/dL (23-266); Thyroid Peroxidase Antobodies 2 IU/mL (<9)
[2021-07-31 20:03] LABS: Free Cortisol Urine 3.8 mcg/24 h (4.0-50.0); Total Urine 1500 mL; Urine Creatinine 1.04 g/24 h (0.50-2.15)
== END 2021-07-27 11:00 | disposition home or self-care (01) ==
PROVIDERS: PCP Family Medicine; Visit Provider Internal Medicine
DX: L68.0 Hirsutism (principal); R23.2 Flushing; R63.5 Abnormal weight gain
CPT/HCPCS: 82530; 82570; 82627; 84403; 84439; 84443; 86376

== ENCOUNTER 2021-12-02 06:00 | Outpatient (RCR) | payer OTHER, SELFPAY | END 2021-12-08 23:59 | disposition home or self-care (01) | LOC: GPT 06:00 | PROVIDERS: PCP Family Medicine; Referring Provider Family Medicine; Visit Provider Family Medicine | DX: G89.29 Other chronic pain (principal); M54.41 Lumbago with sciatica, right side | CPT/HCPCS: 97110; 97140; 97161; G0283 ==

== ENCOUNTER 2021-12-09 06:00 | Outpatient (RCR) | payer OTHER, SELFPAY | END 2022-01-07 23:59 | disposition home or self-care (01) | LOC: GPT 06:00 | PROVIDERS: PCP Family Medicine; Referring Provider Family Medicine; Visit Provider Family Medicine | DX: G89.29 Other chronic pain (principal); M54.41 Lumbago with sciatica, right side | CPT/HCPCS: 97110; 97140; 97164 ==

== ENCOUNTER 2022-01-27 11:07 | Outpatient (CLI) | payer OTHER, SELFPAY ==
--- NOTE | 2022-01-27 11:45 | MR_ITS ---
WS: [id number] MRI LUMBAR SPINE NONCONTRAST HISTORY: chronic low back pain, pain down RIGHT leg. COMPARISON: None available. TECHNIQUE: Sagittal and axial multisequence imaging is submitted. Mild degenerative disc disease in the mid cervical spine. Normal lumbar alignment with no compression fractures or marrow edema. Mild disc desiccation at L5-S1. Conus terminates normally at L1-2 disc level. L1-L2: Normal. L2-L3: Normal. L3-L4: Mild annular disc bulge with mild ligamentum flavum and facet arthritis. Mild encroachment of the thecal sac and subarticular recesses. There is very mild encroachment but no high-grade stenosis involving the traversing L4 nerve roots. L4-L5: Mild annular disc bulge LEFT foraminal fissure without a focal disc protrusion. Ligamentum fla vum and facet arthritis. Small amount of fluid in the facet joints. There is encroachment into the th ecal sac causing a moderate central and subarticular recess and mild bilateral foraminal stenosis. Th ere is mild disc contact upon the traversing L5 nerve roots. L5-S1: Mild disc bulging with a moderate to large RIGHT paracentral proximal foraminal disc protrusio n. This disc protrusion extends into the RIGHT lateral recess and displaces the RIGHT S1 nerve root p osteriorly. Very mild foraminal stenosis. MR/MR lumbar spine wo con* [id number] IMPRESSION: 1. Moderate RIGHT paracentral and proximal foraminal disc protrusion with cont act and displacement of the RIGHT S1 nerve root. 2. Mild degenerative changes resulting in mild central and subarticular recess stenosis with mild encroachment upon the traversing L4 nerve roots. 3. Moderate central and bilateral subarticular recess stenosis at L4-[address] contacting the traversing L5 nerve roots.
== END 2022-01-27 11:08 | disposition home or self-care (01) ==
PROVIDERS: PCP Family Medicine; Visit Provider Family Medicine
DX: G89.29 Other chronic pain (principal); M54.41 Lumbago with sciatica, right side; M51.27 Other intervertebral disc displacement, lumbosacral region; M48.061 Spinal stenosis, lumbar region without neurogenic claudication
CPT/HCPCS: 72148